=== PATIENT | female | born 1975 | race Caucasian/White ===

== ENCOUNTER → 2016-09-04 07:39 | Day surgery (SDC) | payer BC ==
[~2016-09-04 07:39] MED LIST: Acetaminophen TAB* 325 MG PO SCH; Buffered Lidocaine 1% SYR 3ML* 3 ML/SYR SYRINGE INTRADERM ONE; Buffered Lidocaine 1% SYR 3ML* 3 ML/SYR SYRINGE ONE; Bupivacaine 0.5% SDV PF* 30 ML VIAL ONE; Dexamethasone IV* 4 MG/ML 1 ML (4 MG) ONE; Famotidine IV* 10 MG/ML 2 ML (20 mg) ONE; HYDROcodone/ACETAMIN 5-325 MG* 1 TAB PO PRN; KETAMINE HCL* 50 MG/ML 10 ML VIAL ONE; Ketorolac INJ* 30 MG/ML 1 ML VIAL ONE; Lidocaine 1% INJ* 10 MG/ML 30 ML SDV ONE; Midazolam* 1 MG/ML 2 ML VIAL (2 MG) ONE; Ondansetron INJ* 2 MG/ML VIAL IV PRN; PROCHLORPERAZINE INJ 5 MG/ML 2 ML VIAL IV PRN; Propofol* 10 MG/ML 20 ML BTL IV PUSH ONE; Scopolamine 1.5 mg* PATCH ONE; Scopolamine 1.5 mg* PATCH TRANSDERM ONE; Scopolamine PATCH Remove* 1 NOTE MISC PATCH OFF ONE; ceFAZolin 2 GM PREMIX (*) 2 GM/50 ML BAG IVPB ONE; diPHENhydraMINE MDV* 50 MG/ML VIAL ONE; fentaNYL* 50 MCG/ML 2 ML VIAL (100 MCG VIAL) IV PRN; fentaNYL* 50 MCG/ML 2 ML VIAL (100 MCG VIAL) ONE
[2016-09-04 12:07] VITALS: BP 108/66
--- NOTE | 2016-09-04 19:09 | OP ---
DATE OF OPERATION: 09/04/16 - [facility] DATE OF : 75 SURGEON: Miguel Vizcarra DPM [employer]: None. ANESTHESIOLOGIST: Dr. Hubbard ANESTHESIA: MAC with local. PRE-OP DIAGNOSES: 1. Painful bunion deformity with hallux limitus, left foot. 2. Painful Tailor's bunion deformity, left foot. POST-OP DIAGNOSES: 1. Painful bunion deformity with hallux limitus, left foot. 2. Painful Tailor's bunion deformity, left foot. OPERATIVE PROCEDURE: 1. Bunionectomy with first metatarsal osteotomy and phalangeal osteotomy, left foot. 2. Tailor's bunionectomy, left foot. 3. Fifth metatarsal osteotomy, left foot. PATHOLOGY: Degenerative bone. HEMOSTASIS: Pneumatic ankle tourniquet. MATERIALS: Three of the 3.0 cannulated Tanvi screws. INDICATIONS: The patient with chronic and progressive left forefoot deformity and pain while walking wearing shoes with a bunion deformity and tailor's bunion and she opts for surgery at this time to attempt to decrease the deformity, decrease pain and improve function. DESCRIPTION OF PROCEDURE: The patient was brought to the operating room, placed on the operating table in the supine position. The anesthesia department administered IV sedation and a peripheral nerve block was performed about the left forefoot with a 1:1 mixture of 1% lidocaine plain and 0.5% Marcaine plain. The left foot was prepped and draped in the usual fashion. An Esmarch bandage was utilized to exsanguinate the left foot and the pneumatic ankle tourniquet was then inflated to 250 mmHg above the well-padded left ankle. Attention was directed to the dorsomedial aspect of the left great toe joint where a curvilinear incision was made. The incision was deepened through the subcutaneous tissues with care being taken to retract neurovascular structures and cauterize superficial bleeders as needed. An inverted L- capsular incision was made to allow for exposure of the joint. There was noted to be hypertrophic bone at the medial aspect of the first metatarsal head. There was also some plantar lateral adhesions of the sesamoid apparatus and a McGlamry elevator was needed to free these adhesions. The hypertrophied bone of the medial first metatarsal head was resected with sagittal saw in a manner as to preserve the sagittal groove. An intracapsular lateral release was performed. Dorsally, the extensor hallucis brevis tendon was identified and transected. This allowed for relaxation of lateral contractures. Next, a Chevron type first metatarsal osteotomy was performed with the apex just dorsal and proximal to the geometric center. The plantar wing was cut, angled slightly plantarly and proximally to allow for some plantar flexion of the capital fragment. The dorsal wing was cut at medial wedge of bone to correct for some PASA. The capital fragment was transposed to correct the position and temporary fixation was achieved with a wire from the screw set after assessing with a C-arm and using standard technique. A 3.0 mm cannulated Tanvi screw was placed across the osteotomy site with care being taken to ensure the tip of the screw did not penetrate the joint. Temporary fixations were removed. The position and fixation was assessed with the C-arm. The screw was noted to be 2 fingers tight and the osteotomy was solid with no detectable motion or gapping. Sagittal saw was used to resect the redundant shelf of bone medially and distal first metatarsal. The power nathalie was used to smooth the rough edges. The surgical site was flushed with copious amounts of normal sterile saline. There was still some lateral deviation in hallux interphalangeus within the great toe. The dissection was carried further distal medially and periosteum was reflected to allow for exposure and the phalangeal osteotomy was performed with a wedge of bone resected from the distal medial, more proximal lateral with the lateral hinge maintained. The osteotomy was reduced and temporary fixation was achieved with a bone clamp and then the wire from the screw set and after assessing positioning with a C-arm, the 3.0 cannulated screw was also placed across the osteotomy site using standard technique. With the temporary fixation removed, the osteotomy was found to be solid with no detectable motion or gapping. The screw was 2 fingers tight. Again, the final correction and fixation was assessed with the C-arm. Medial capsulorrhaphy was performed resecting the redundant medial capsule. Surgical site was flushed with copious amounts of normal sterile saline. The capsular and periosteal tissues were reapproximated and secured with 2-0 Polysorb while holding the hallux in a rectus position. Subcutaneous tissues were reapproximated 4-0 Polysorb and skin was reapproximated with 5-0 nylon. Attention was then directed to the dorsolateral aspect of the fifth metatarsophalangeal joint where a curvilinear incision was made. The incision was deepened to subcutaneous tissues with care being taken to retract neurovascular structures and cauterize superficial bleeders as needed. Dissection was carried down to the periosteum and capsule of distal fifth metatarsal and this was reflected off for exposure of the joint in distal fifth metatarsal. There was noted to be hypertrophied bone laterally , which was resected with a sagittal saw. Next, a closing base wedge osteotomy was performed from distal medial to more proximal lateral with the lateral hinge maintained. The resultant wedge of bone was resected and the osteotomy was reduced and secured with a bone clamp and wire from the screw set. The correction was assessed with C-arm and using standard technique, a 3.0 mm Tanvi cannulated screw was placed across the osteotomy site. Temporary fixation was removed. The position, correction, and fixation was assessed with C-arm. The osteotomy was inspected, found to be solid but no detectable motion or gapping. The screw was 2 fingers tight. The surgical site was flushed with copious amounts of normal sterile saline. After some of the rough edges distally were burred smooth and the periosteal and capsular tissues were reapproximated and secured with 4-0 Polysorb, the subcutaneous tissues were reapproximated with 4-0 Polysorb and the skin was reapproximated with 5-0 nylon. A 12 mg of dexamethasone phosphate was infiltrated about the surgical sites in total and the incisions were then dressed with Xeroform, 4x4 gauze, Claudy and a light Coban wrap. The pneumatic ankle tourniquet was deflated about the left ankle and a prompt hyperemic response was noted about all 5 digits of the patient's left foot. Having appeared to have tolerated the procedures and anesthesia well, the patient was transported via cart from the operating room to Recovery in satisfactory condition with capillary refill less than 3 seconds to all digits of the left foot. [id number]/[facility] #: [id number] [facility]ENTERJairo
--- NOTE | 2016-09-09 20:42 | RAD ---
INDICATION: Left foot surgery. COMPARISON: There are no prior studies available for comparison. TECHNIQUE: 6 seconds of intermittent fluoroscopic guidance were provided and 2 spot films of the left foot were obtained in the operating room. FINDINGS: There is an osteotomy of the distal first metatarsal transfixed with a surgical screw. IMPRESSION: INTRAOPERATIVE CONTROL FILMS. CPT II Codes: 6045F
== END | disposition home or self-care (01) ==
LOC: OREAST 07:39
PROVIDERS: ATTEND Podiatrist Foot Surgery
DX: M21.612 Bunion of left foot (principal); M21.622 Bunionette of left foot
CPT/HCPCS: 76000; 88304; 88311; A9270-GY; C1713; C1776; J0690; J1100; J1200; J1885; J2250; J2704; J3010

== ENCOUNTER 2016-11-03 07:29 | Emergency (ER) | payer BC ==
[2016-11-03 07:45] VITALS: BP 109/53
--- NOTE | 2016-11-03 07:58 | UC ---
FLU HPI - History of Current Complaint Chief Complaint: UCGeneralIllness Stated Complaint: FEVER,COUGH,CONGESTION Time Seen by Provider: 11/03/16 07:36 Hx Obtained From: Patient Hx Last Menstrual Period: 10/21/16 ?: No Onset/Duration: Sudden Onset Severity Currently: Moderate Severity Initially: Severe Associated Signs & Symptoms: Positive: Fever, T Max - 101, Myalgia, Cough, Sore Throat, Nasal Congestion. Negative: Headache, Vomiting, Diarrhea Related Hx: Possible Flu/Infectious Exposure - Grandmother has flu like illness right now as well. - Risk Factors Influenza Risk Factors: Negative - Allergy/Home Medications Allergies/Adverse Reactions: Allergies Allergy/AdvReac Type Severity Reaction Status Date / Time Sulfa Drugs Allergy Intermediate Diarrhea Verified 11/03/16 07:33 Home Medications: Home Medications Acetaminophen [Tylenol] 2 tab PO Q4HR PRN 11/03/16 [History Confirmed 11/03/16] Diphenhydramine-Phenylephrine- [Delsym Cough + Cold Night 12.5-5-325 mg/10Ml] 10 ml PO Q6HR PRN 11/03/16 [History Confirmed 11/03/16] PMH/Surg Hx/FS Hx/Imm Hx Previously Healthy: Yes Endocrine History Of: Denies: Diabetes - Surgical History Surgical History: Yes Surgery Procedure, Year, and Place: L5/S1- 15 YEARS AGO- [place]. BUNION SURGERY RIGHT FOOT-5 YEARS AGO- [facility] [place]. TUBES A CHILD. TONSILLECTOMY A CHILD. TUBE IN LEFT EAR 2013. Bunions Surgery Left foot 08/2016- [facility] [place] - Family History Known Family History: Positive: None Negative: Diabetes, Respiratory Disease - Social History Occupation: Employed Full-time Alcohol Use: Rare Substance Use Type: None Smoking Status (MU): Never Smoked Tobacco - Immunization History Most Recent Influenza Vaccination: 05/2016 Review of Systems All Other Systems Reviewed And Are Negative: Yes Physical Exam Triage Information Reviewed: Yes Appearance: Ill-Appearing - Sitting up, alert, pleasant. frequent cough and sniffles. appears mildly ill. Vital Signs: Initial Vital Signs Temp 99.4 F 11/03/16 07:36 Pulse 89 11/03/16 07:36 Resp 14 11/03/16 07:36 BP 109/53 11/03/16 07:36 Pulse Ox 98 11/03/16 07:36 Vital Signs Reviewed: Yes Eyes: Positive: Conjunctiva Clear. Negative: Conjunctiva Inflamed ENT: Positive: Normal ENT inspection, Hearing grossly normal, Pharynx normal, Nasal congestion. Negative: Pharyngeal erythema, Nasal drainage, TMs normal, TM bulging, TM dull, TM red, Tonsillar swelling, Tonsillar exudate, Trismus, Muffled/hoarse voice Neck exam: Normal Neck: Positive: Supple, Nontender, No Lymphadenopathy. Negative: Nuchal Rigidity, Tenderness @, Enlarged Nodes @ Respiratory Exam: Normal Respiratory: Positive: Chest non-tender, Lungs clear, Normal breath sounds, No respiratory distress, No accessory muscle use. Negative: Respiratory distress, Decreased breath sounds, Accessory muscle use, Crackles, Rhonchi, Stridor Cardiovascular Exam: Normal Cardiovascular: Positive: RRR, No Murmur, Pulses Normal, Brisk Capillary Refill Abdomen Description: Positive: Nontender, No Organomegaly Bowel Sounds: Positive: Present Musculoskeletal Exam: Normal Musculoskeletal: Positive: Strength Intact, ROM Intact, No Edema Neurological Exam: Normal Neurological: Positive: Alert, Muscle Tone Normal, Fatigued Psychological Exam: Normal Skin Exam: Normal Skin: Negative: rashes Flu Course/Dx - Differential Dx/Diagnosis Differential Diagnosis/HQI/PQRI: Bronchitis, Broncholiolitis, Influenza, Pneumonia, RSV, Upper Respiratory Infection Provider Diagnoses: viral syndrome. Discharge - Discharge Plan Condition: Stable Disposition: HOME Prescriptions: Oseltamivir CAP* [Tamiflu CAP*] 75 mg PO BID #10 cap Patient Education Materials: Influenza (ED) Forms: *Work Release Referrals: Saad Enriquez MD [Primary Care Provider] - If Needed
== END 2016-11-03 08:33 | disposition home or self-care (01) ==
LOC: UCCORT 07:29
DX: B34.9 Viral infection, unspecified (principal); Z88.2 Allergy status to sulfonamides
CPT/HCPCS: 87502; 99212; G0463